=== PATIENT | male | born 1990 | race African-American/Black ===

== ENCOUNTER 2025-02-07 15:19 | Inpatient (IN) | payer OTHER ==
[~2025-02-07] VITALS: Ht 182.9 cm; Wt 109.0 kg
--- NOTE | 2025-02-07 16:10 | ED.PDOC ---
GI ASSESSMENT HPI Comments 34 year old male presented with abdominal pain and body aches, seeking testing and symptomatic relief. The patient reported experiencing abdominal pain so severe that it interfered with daily activities, including smoking. The patient also mentioned vomiting frequently, body aches, and sniffles, suspecting a COVID-19 infection due to similar past experiences. The patient had not used [id number] COVID or flu tests. The only medication taken was an [id number] cold and flu remedy the night before the visit. The patient had a history of epilepsy in childhood but no current medications. The patient reported smoking tobacco and marijuana regularly, with alcohol consumption four days prior. The patient reported not having any allergies or past surgeries. Chief Complaint: Flu like Time Seen by MD: 16:00 Reviewed Notes: Medications, Allergies Allergies: Coded Allergies: NO KNOWN ALLERGIES (Unverified , 02/07/25) Information Source: Patient Mode of Arrival: Ambulatory Timing: Days Duration: Since onset Prehospital treatment: None Quality: Sharp Severity: Moderate Recent: None Recent Hx of: None Pain Location: Diffuse Modifying Factors: Nothing Associated sign and symptoms: Nausea, Vomiting Past Medical History PAST MEDICAL HISTORY: Denies Surgical History: Denies all surgeries Family History Family History: Reviewed,noncontributory to illness, No family hx of Cancer, No family hx of DM, No family hx of Heart kulwant, No family hx of HTN, No family hx ofKidney kulwant, No family hx of Liver kulwant, No family hx of Lung kulwant, No family hx of Stroke Social History Smoker: Non-Smoker Alcohol: Denies ETOH Use Drugs: Denies Drug Use Lives In: Home All Other Systems: Reviewed and Negative (as per HPI) Physical Exam General Appearance: No Apparent Distress, Normal HEENT: Normal ENT Inspection, Pharynx Normal, TMs Normal Neck: Full Range of Motion, Non-Tender, Normal, Normal Inspection Respiratory: Chest Non-Tender, Lungs Clear, No Accessory Muscle Use, No Res piratory Distress, Normal Breath Sounds Cardiovascular: No Edema, No JVD, No Murmur, No Gallop, Normal Peripheral Pulses, Regular Rate/Rhythm Breast Exam: Deferred Gastrointestinal: No Organomegaly, No Pulsatile Mass, Normal Bowel Sounds, Tenderness (tenderness to abdomen on palpation) Genitalia: Deferred Pelvic: Deferred Rectal: Deferred Extremities: No calf tenderness, Normal capillary refill, Normal inspection, Normal range of motion, Non-tender, No pedal edema Musculoskeletal : Apperance: Normal Neurologic: Alert, icu staff nurse II-XII nml as Tested, No Motor Deficits, Normal Affect, Normal Mood, No Sensory Deficits Cerebellar Function: Normal Reflexes: Normal Skin: Dry, Normal Color, Warm Lymphatic: No Adenopathy Was a procedure done? Was a procedure done?: No X-Ray, Labs, Meds, VS Vital Signs Date Time Temp Pulse Resp B/P (MAP) Pulse Ox O2 Delivery O2 Flow Rate FiO2 02/07/25 15:22 98.3 91 20 144/92 98 98.3 Lab Test 02/07/25 16:58 02/07/25 16:10 Range/Units White Blood Count 7.6 4.4-10.8 10^3/uL Red Blood Count 4.79 4.5-5.90 10^6/uL Hemoglobin 13.8 13.5-17.5 g/dL Hematocrit 42.2 41.0-53.0 % Mean Corpuscular Volume 88.0 80.0-100.0 fL Mean Corpuscular Hemoglobin 28.8 28.0-32.0 pg Mean Corpuscular Hemoglobin Concent 32.7 32.0-36.0 g/dL Red Cell Distribution Width 13.4 11.8-14.3 % Platelet Count 243 140-450 10^3/uL Mean Platelet Volume 8.5 6.9-10.8 fL Neutrophils (%) (Auto) 66.1 37.0-80.0 % Lymphocytes (%) (Auto) 25.1 10.0-50.0 % Monocytes (%) (Auto) 5.6 0.0-12.0 % Eosinophils (%) (Auto) 2.3 0.0-7.0 % Basophils (%) (Auto) 0.9 0.0-2.0 % Neutrophils # (Auto) 5.0 1.6-8.6 10 ^3/uL Lymphocytes # (Auto) 1.9 0.4-5.4 10 ^3/uL Monocytes # (Auto) 0.4 0-1.3 10 ^3/uL Eosinophils # (Auto) 0.2 0-0.8 10 ^3/uL Basophils # (Auto) 0.1 0-0.2 10 ^3/uL Nucleated Red Blood Cells 0.1 % Sodium Level Pending Potassium Level Pending Chloride Level Pending Carbon Dioxide Level Pending Anion Gap Pending Blood Urea Nitrogen Pending Creatinine Pending Glomerular Filtration Rate Calc Pending BUN/Creatinine Ratio Pending Serum Glucose Pending Calcium Level Pending Lipase Pending HIV (1&2) Antibody Pending Urine Color Light-yellow Yellow Urine Clarity Clear Clear Urine pH 6.0 5.0-9.0 Urine Specific [place] 1.020 1.001-1.035 Urine Protein Negative Negative Urine Ketones Negative Negative Urine Blood Negative Negative /uL Urine Nitrite Negative Negative Urine Bilirubin Negative Negative Urine Urobilinogen Normal Negative mg/dL Urine Leukocyte Esterase Negative Negative /uL Urine RBC 1 0 - 3 /hpf Urine Microscopic WBC < 1 0-3 /HPF Urine Squamous Epithelial Cells None seen <5 /hpf Urine Bacteria None seen None Seen /hpf Urine Glucose Normal Normal mg/dL Chlamydia trachomatis (MICHAEL) Pending Neisseria gonorrhoeae (MICHAEL) Pending Current Medications Medications (Trade) Dose Ordered Sig/Armida Route Start Time Stop Time Status Last Admin Ondansetron HCl (Zofran Po) 4 mg ONCE ONCE PO 02/07/25 16:15 02/07/25 16:16 DC 02/07/25 16:46 Hyoscyamine (Hyoscyamine ORAL DISSOLVING TAB) 0.125 mg ONCE ONCE PO 02/07/25 16:15 02/07/25 16:16 DC 02/07/25 16:46 X-Ray, Labs, Meds, VS Comment 34 year old male presented with abdominal pain and body aches, seeking testing and symptomatic relief. Patient arrives alert and oriented, ABC's intact, afebrile, vital signs stable, saturating well in room air labs were ordered. CBC was ordered to exclude anemia, blood loss, or infection. BMP was ordered to exclude electrolyte abnormalities, renal failure, dehydration, hyperglycemia CMP was ordered to exclude electrolyte abnormalities, renal failure, dehydration, hyperglycemia and/or liver enzyme abnormalities. PT and INR were ordered to rule out coagulopathy. Troponin and BNP were ordered to rule out myocardial infarction, or congestive heart failure. Urinalysis was ordered to rule out UTI or hematuria. Diagnostic imaging ordered by me and results interpreted by radiology : Labs in the ED showed (pertinent+ and then pertinent-) Patient was given:_. Tolerated medications with no adverse reaction. Additional MDM Review of External, Non-ED records: External records reviewed. Discussion with independent historian (EMS, family) history obtained from the patient/parents (if applicable) at bedside Chronic conditions affecting care: None Social determinants of health affecting care: None Consideration of admission (observation or admission): I considered escalation of care to admission for this patient, however given the reassuring workup, the patient is safe for outpatient management. PLAN: Treatment: - Medications: Administered Zofran for nausea. Tests: - Imaging: Planned abdominal scan to assess for any organ issues. - Labs: Ordered blood work to check for infections. - Viral Testing: Planned COVID-19 and influenza testing. Patient Education: - Discussed the nature of viral infections and symptomatic treatment options. - Advised on the importance of following up with results and adhering to prescribed medications. Follow-Up: - Planned to discharge the patient with medication once tests were completed and results evaluated. Disposition: - The patient was to remain in the clinic until tests and necessary treatments were administered. On reevaluation, patient had symptomatic improvement. Patient is stable for discharge at this time. External notes reviewed. Test results and diagnostic imaging interpreted. All diagnostic findings, discharge care, education and instructions provided Follow-up with PCP in 2 to 3 days Patient verbalized understanding and agreed to treatment plan Vital signs stable, afebrile, no acute distress noted Patient ambulatory with strong steady gait Advised to return precautions for any new or worsening symptoms, return to ER immediately for re-evaluation Patient is aware that the purpose of this visit was for an acute medical emergency requiring emergent stabilization. Chronic conditions, including malignancies have not been ruled out. Patient is instructed to follow up with PCP as directed and discharge instructions for continued care and workup. If unable to arrange follow-up, patient is to return to the emergency department for reassessment. Patient (parent or legal guardian if applicable) was given verbal and written discharge instructions and acknowledges understanding. Time of 1ST Reevaluation: 16:30 Reevaluation 1ST: Improved Patient Education/Counseling: Diagnosis, Treatment Family Education/Counseling: No Family Present SEPSIS Sepsis Screen Date sepsis recognized/suspect: Feb 07, 2025 Time Sepsis recognized/suspect: 1521 Recent Procedure: No On Antibiotic Therapy: No Respiratory Rate >20: No Heart Rate >90: No Temp<36 C (96.8 F) or >38.3 C: No SBP <90 or MAP <65 mmHG: No New Acute Mental Status Change: No Is the patient on CPAP, BIPAP,: No Physician Orders Basic Metabolic Panel (02/07/25 16:08) Ct Ab Pel Wo Con-No Oral Or Iv (02/07/25 16:08) Hiv 1&2 Antibody (02/07/25 16:08) Chlamydia/Gc Amplification (02/07/25 16:08) Lipase (02/07/25 16:08) Vital Signs Date Time Temp Pulse Resp B/P (MAP) Pulse Ox O2 Delivery O2 Flow Rate FiO2 02/07/25 15:22 98.3 91 20 144/92 98 98.3 Laboratory Tests Test 02/07/25 16:58 White Blood Count 7.6 10^3/uL (4.4-10.8) Medications Medications Dose Ordered Sig/Armida Route Start Time Stop Time Status Last Admin Dose Admin Hyoscyamine 0.125 mg ONCE ONCE PO 02/07/25 16:15 02/07/25 16:16 DC 02/07/25 16:46 Ondansetron HCl 4 mg ONCE ONCE PO 02/07/25 16:15 02/07/25 16:16 DC 02/07/25 16:46 Departure 1 Departure Impression: Primary Impression: Adrenal nodule Additional Impressions: Colitis Gastritis Nausea & vomiting Abdominal pain Critical Care Note Critical Care Time?: No Stability Stability form required: No Heart Score Heart Score: Heart Score Response (Comments) Value History N/A 0 EKG N/A 0 Age N/A 0 Risk Factors N/A 0 Troponin N/A 0 Total 0 I personally scribed for HARRY AG NP ([email or web address]) on 02/07/25 at 16:10. Electronically submitted by Lindsay Paredes ([email or web address]). I personally scribed for HARRY AG NP ([email or web address]) on 02/07/25 at 16:11. Electronically submitted by Lindsay Paredes ([email or web address]). HARRY AG RIDING COACH Feb 07, 2025 16:10
[2025-02-07] MEDS: ONDANSETRON ODT 4 MG TAB PO ONE (16:46)
[2025-02-07] MEDS: HYOSCYAMINE SULF 0.125 MG ODT TAB PO ONE (16:46)
--- NOTE | 2025-02-07 17:07 | DVH ---
EXAM: CT CT AB PEL WO CON-NO ORAL OR IV History: ab pain Comparison Study: None TECHNIQUE: Multidetector CT of the abdomen pelvis without IV contrast. Axial, coronal and sagittal multiplanar reformats were obtained from the axial data set by the technologist. Radiation Dose Information: CT Dose: CTDI volume is 16.05 mGy. Dose-length product is 877.61 mGy*cm FINDINGS: Bibasilar atelectasis. Partially visualized heart is unremarkable. Mild hepatomegaly. Otherwise, liver, spleen, gallbladder, pancreas and left adrenal glands unremarkable. Indeterminate 1.7 cm right adrenal nodule measuring up to 44 Hounsfield units and abutting the upper pole of the right kidney. Kidneys, ureters and urinary bladder unremarkable. Prostate is unremarkable. Mild gastric wall thickening. Small bowel loops are unremarkable. Appendix is unremarkable. Mild wall thickening of the ascending colon, transverse colon and descending colon. Small to moderate amount of fecal material within the colon. No evidence of intraperitoneal free air or free fluid. No evidence of aortic aneurysm. No significant lymphadenopathy. The soft tissues are unremarkable. No evidence of acute osseous abnormalities. IMPRESSION: Mild gastritis. Mild colitis involving the ascending colon, transverse colon and descending colon. 1.7 cm indeterminate right adrenal nodule. Adrenal protocol CT / MRI is recommended for further evaluation.
[2025-02-07 17:20] LABS: Urine Protein, UAD Negative (Negative)
[2025-02-07 17:22] LABS: Hematocrit 42.2 % (41.0-53.0); Hemoglobin 13.8 g/dL (13.5-17.5); Mean Corpuscular Hemoglobin 28.8 pg (28.0-32.0); Mean Corpuscular Volume 88.0 fL (80.0-100.0); Nucleated Red Blood Cells % 0.1 %
[2025-02-07 17:28] LABS: Chloride 102 mmol/L (98-107); Potassium 3.9 mmol/L (3.5-5.1); Sodium 138 mmol/L (136-145)
[2025-02-07 17:29] LABS: Anion Gap 8 (5-15); Calcium 9.3 mg/dL (8.7-10.4); Carbon Dioxide 28 mmol/L (20-31)
[2025-02-07 17:34] LABS: BUN/Creatinine Ratio 8.5 (10.0-20.0); Glucose 88 mg/dL (74-106); Lipase 35 U/L (12-53)
[2025-02-07 17:39] LABS: Blood Urea Nitrogen 8 mg/dL (9-23)
[2025-02-07] MEDS: MORPHINE SULFATE 4 MG/ML SYR/VIAL IV ONE (18:20)
[2025-02-07] MEDS: SODIUM CHLORIDE 0.9% 500 ML IV ONE (18:20)
[2025-02-07] MEDS: ONDANSETRON HCL 4 MG/2 ML VIAL IV ONE (18:20)
[2025-02-07] MEDS ORDERED: ONDANSETRON HCL 4 MG/2 ML VIAL IV PRN (22:00)
--- NOTE | 2025-02-07 22:03 | DVHHPRES ---
History of Present Illness Resident Creating Document: JOSUÉ RODRIGUEZ RESIDENT History of Present Illness This is a 34-year-old male with 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 Patient current symptoms associated with nausea and vomiting same duration which contain food materials but no blood mixed with vomitus. Patient also having loose stool for last 3 days, 1 to 2 episode per day but stool not mixed with any blood Patient denies any recent sick contact, travel outside or taking street food recently. Currently denies any fever, SOB, headache, cough, dysuria or any other focal weakness. Past medical history: Childhood epilepsy not on any medication Past surgical history: Nothing contributory Family history: Nothing contributory Personal history: Smokes vape, use marijuana daily and last use yesterday, occasional ETOH, denies any illicit drug use Allergy: No known allergy PCP: Dr. Dubon Otter medication: None Review of Systems Constitutional: Yes: Weakness, Malaise, Other (Tattoo ernie different parts of the body); No: Fever, Chills, Sweats Eyes: No: Pain, Vision change, Conjunctivae inflammation, Eyelid inflammation, Other, Redness ENT: No: Ear pain, Ear discharge, Nose pain, Nose discharge, Nose congestion, Mouth pain, Mouth swelling, Throat pain, Throat swelling, Other Respiratory: No: Cough, Dry, Shortness of breath, SOB with excertion, Wheezing, Hemoptysis, Pleuritic Pain, Sputum, Wheezing, Other Cardiovascular: No: Chest Pain, Palpitations, Orthopnea, Paroxysmal Noc. Dyspnea, Edema, Lt Headedness, Other Gastrointestinal: Nausea, Vomiting, Abdominal Pain; No: Diarrhea, Constipation, Melena, Hematochezia, Other Genitourinary: No Dysuria, No Frequency, No Incontinence, No Hematuria, No Retention, No Other Musculoskeletal: No: other, neck pain, shoulder pain, arm pain, back pain, hand pain, leg pain, foot pain Skin: No: Rash, Lesions, Jaundice, Bruising, Other Neurological: No: Weakness, Numbness, Incoordination, Change in speech, Confusion, Seizures, Other Allergies: Coded Allergies: NO KNOWN ALLERGIES (Unverified , 02/07/25) Exam Vital Signs Vital Signs Date Time Temp Pulse Resp B/P (MAP) Pulse Ox O2 Delivery O2 Flow Rate FiO2 02/07/25 20:54 98.4 73 20 130/84 (99) 99 98.4 General Appearance: Alert, Oriented X3, Cooperative, moderate distress HEENT: Atraumatic, PERRLA, EOMI Respiratory: Clear to auscultation, Normal air movement Cardiovascular: Regular rate, Normal S1, Normal S2, No murmurs Abdominal: Normal bowel sounds, Soft, Other (Abdomen tender on deep palpation) Extremities: No clubbing, No cyanosis, No edema, Normal pulses Skin: No rashes, No breakdown, No significant lesion Neuro: Normal gait, Normal speech, Strength at 5/5 X4 ext, Sensation intact, Cranial nerves 3-12 NL Psych/Mental Status: Mental status NL, Mood NL Labs/Xrays Labs Test 02/07/25 16:58 02/07/25 16:10 Range/Units White Blood Count 7.6 4.4-10.8 10^3/uL Red Blood Count 4.79 4.5-5.90 10^6/uL Hemoglobin 13.8 13.5-17.5 g/dL Hematocrit 42.2 41.0-53.0 % Mean Corpuscular Volume 88.0 80.0-100.0 fL Mean Corpuscular Hemoglobin 28.8 28.0-32.0 pg Mean Corpuscular Hemoglobin Concent 32.7 32.0-36.0 g/dL Red Cell Distribution Width 13.4 11.8-14.3 % Platelet Count 243 140-450 10^3/uL Mean Platelet Volume 8.5 6.9-10.8 fL Neutrophils (%) (Auto) 66.1 37.0-80.0 % Lymphocytes (%) (Auto) 25.1 10.0-50.0 % Monocytes (%) (Auto) 5.6 0.0-12.0 % Eosinophils (%) (Auto) 2.3 0.0-7.0 % Basophils (%) (Auto) 0.9 0.0-2.0 % Neutrophils # (Auto) 5.0 1.6-8.6 10 ^3/uL Lymphocytes # (Auto) 1.9 0.4-5.4 10 ^3/uL Monocytes # (Auto) 0.4 0-1.3 10 ^3/uL Eosinophils # (Auto) 0.2 0-0.8 10 ^3/uL Basophils # (Auto) 0.1 0-0.2 10 ^3/uL Nucleated Red Blood Cells 0.1 % Sodium Level 138 136-145 mmol/L Potassium Level 3.9 3.5-5.1 mmol/L Chloride Level 102 98-107 mmol/L Carbon Dioxide Level 28 20-31 mmol/L Anion Gap 8 5-15 Blood Urea Nitrogen 8 L 9-23 mg/dL Creatinine 0.94 0.700-1.30 mg/dL Glomerular Filtration Rate Calc 108 >90 mL/min BUN/Creatinine Ratio 8.5 L 10.0-20.0 Serum Glucose 88 74-106 mg/dL Calcium Level 9.3 8.7-10.4 mg/dL Lipase 35 12-53 U/L HIV (1&2) Antibody Negative Negative Urine Color Light-yellow Yellow Urine Clarity Clear Clear Urine pH 6.0 5.0-9.0 Urine Specific [place] 1.020 1.001-1.035 Urine Protein Negative Negative Urine Ketones Negative Negative Urine Blood Negative Negative /uL Urine Nitrite Negative Negative Urine Bilirubin Negative Negative Urine Urobilinogen Normal Negative mg/dL Urine Leukocyte Esterase Negative Negative /uL Urine RBC 1 0 - 3 /hpf Urine Microscopic WBC < 1 0-3 /HPF Urine Squamous Epithelial Cells None seen <5 /hpf Urine Bacteria None seen None Seen /hpf Urine Glucose Normal Normal mg/dL SEPSIS Sepsis Screen Date sepsis recognized/suspect: Feb 07, 2025 Time Sepsis recognized/suspect: 1522 Recent Procedure: No On Antibiotic Therapy: No Respiratory Rate >20: No Heart Rate >90: No Temp<36 C (96.8 F) or >38.3 C: No SBP <90 or MAP <65 mmHG: No New Acute Mental Status Change: No Is the patient on CPAP, BIPAP,: No Physician Orders Ct Ab Pel Wo Con-No Oral Or Iv (02/07/25 16:08) Chlamydia/Gc Amplification (02/07/25 16:08) Heplock Iv (02/07/25 17:35) Admit (02/07/25 21:56) Code Status (02/07/25 21:56) 0.9% Ns 1000 Ml (02/07/25 22:00) Enoxaparin Sodium (Lovenox) (02/08/25 10:00) Npo (Nothing By Mouth) Diet (02/08/25 Breakfast) Stat Ekg For Chest Pain (02/07/25 21:56) Notify Of Changes From Base (02/07/25 21:56) Ondansetron Hcl (Zofran) (02/07/25 22:00) Hydromorphone Injection (Dilaudid Inject (02/07/25 22:00) Drug Screen (02/07/25 21:56) Metronidazole Ivpb Flagyl (02/07/25 22:00) Metronidazole Ivpb Flagyl (02/07/25 22:00) Ceftriaxone Ivpb Rocephin (02/07/25 22:00) Ceftriaxone Ivpb Rocephin (02/07/25 22:00) Vital Signs Date Time Temp Pulse Resp B/P (MAP) Pulse Ox O2 Delivery O2 Flow Rate FiO2 02/07/25 20:54 98.4 73 20 130/84 (99) 99 98.4 02/07/25 18:39 77 16 135/89 (104) 99 02/07/25 18:20 77 16 135/89 02/07/25 15:22 98.3 91 20 144/92 98 98.3 Laboratory Tests Test 02/07/25 16:58 White Blood Count 7.6 10^3/uL (4.4-10.8) Medications Medications Dose Ordered Sig/Armida Route Start Time Stop Time Status Last Admin Dose Admin Hyoscyamine 0.125 mg ONCE ONCE PO 02/07/25 16:15 02/07/25 16:16 DC 02/07/25 16:46 0.125 MG Morphine Sulfate 4 mg ONCE ONCE IV 02/07/25 17:45 02/07/25 17:46 DC 02/07/25 18:20 4 MG Ondansetron HCl 4 mg ONCE ONCE PO 02/07/25 16:15 02/07/25 16:16 DC 02/07/25 16:46 4 MG Ondansetron HCl 4 mg PRN ONCE IV 02/07/25 17:45 02/07/25 17:46 DC 02/07/25 18:20 4 MG Sodium Chloride 500 ml @ 1,000 mls/hr Q30M ONCE IV 02/07/25 17:45 02/07/25 18:43 DC 02/07/25 18:20 1,000 MLS/HR Assessment/Plan Assessment/Plan Intractable abdominal pain due to colitis Acute gastroenteritis Gram-positive or Gram-negative bacteria Cannabis induced hyperemesis Patient came with GI symptoms Took injr-qjw-wanicnq flu medicine In ER patient received morphine, ondansetron, NSS, hyoscyamine. Lipase: 35 CT abdomen pelvis without contrast:Mild gastritis. Mild colitis involving the ascending colon, transverse colon and descending colon. IVF Antiemetic Pain management Empiric antibiotic ceftriaxone and metronidazole, deescalate accordingly GC chlamydia-pending HIV: Negative Monitor labs and vital Substance abuse/marijuana use daily UDS positive for fentanyl, cocaine, cannabis.. Counseling done>13 minutes spent. Incidentaloma right adrenal gland CT abdomen shows: 1.7 cm indeterminate right adrenal nodule. Outpatient follow-up History of epilepsy in childhood Not on any medication Outpatient neurology Obesity, BMI 32.6 Lifestyle modification Diet: NPO, advanced accordingly GI prophylaxis: Pantoprazole DVT prophylaxis: Lovenox Goals of care discussion. More than 23 minute spent with patient. Full code status. Case discussed with Dr. Almanzar Plan discussed with: Patient, Other (Nurse) My Orders Orders - JOSUÉ RODRIGUEZ RESIDENT Procedure Category Date Status Time Admit ADMIT 02/07/25 Verified 21:56 Code Status CODE 02/07/25 Verified 21:56 0.9% Ns 1000 Ml PHA 02/07/25 Verified 22:00 Enoxaparin Sodium PHA 02/08/25 Verified (Lovenox) 10:00 Npo (Nothing By DIET 02/08/25 Verified Mouth) Diet Breakfast Stat Ekg For Chest [facility] 02/07/25 Verified Pain 21:56 Notify Md Of Changes MARGE 02/07/25 Verified From Base 21:56 Ondansetron Hcl PHA 02/07/25 Verified (Zofran) 22:00 Hydromorphone PHA 02/07/25 Verified Injection (Dilaudid 22:00 Drug Screen LAB 02/07/25 Verified 21:56 Metronidazole Ivpb PHA 02/07/25 Verified Flagyl 22:00 Metronidazole Ivpb PHA 02/07/25 Verified Flagyl 22:00 Ceftriaxone Ivpb PHA 02/07/25 Verified Rocephin 22:00 Ceftriaxone Ivpb PHA 02/07/25 Verified Rocephin 22:00 Visit Coding STANDARD RES Billing Provider: ALECIA ALMANZAR MD Date of Service if different f: Feb 07, 2025 Common Visit Codes: 04655-[id number] INP/OBS CARE (HIGH) Secondary Visit Codes: 29056-[id number] CARE PLAN 30 MINUTES JOSUÉ RODRIGUEZ RESIDENT Feb 07, 2025 22:02
[2025-02-07 22:35] LABS: Cannabinoid Screen, Urine Pos (NEGATIVE); Cocaine Screen, Urine Pos (NEGATIVE)
[2025-02-07 22:58] LABS: Amphetamine Screen, Urine Neg (NEGATIVE); Barbiturate Scree,Urine Neg (NEGATIVE); Benzodiazephine Screen, Urine Neg (NEGATIVE); Opiate Scree,Urine Neg (NEGATIVE); Phencyclidine Screen, Urine Neg (NEGATIVE)
[2025-02-08] VITALS (7 sets, daily range): BP systolic 104–129; BP diastolic 42–74; PULSE 63–72; RESP 16–20; TEMP 97.4–98.3; O2SAT 96–99
[2025-02-08] MEDS: HYDROmorphone HCL 2 MG/ML VL/or syr IV PRN (02:08)
[2025-02-08] MEDS: SODIUM CHLORIDE 0.9% 1,000 ML IV SCH (02:15)
[2025-02-08 06:14] LABS: Hematocrit 38.4 % (41.0-53.0); Hemoglobin 13.1 g/dL (13.5-17.5); Mean Corpuscular Hemoglobin 29.6 pg (28.0-32.0); Mean Corpuscular Volume 86.5 fL (80.0-100.0); Nucleated Red Blood Cells % 0.1 %
[2025-02-08 06:31] LABS: Alanine Aminotransferase 24 U/L (7-40); Albumin 3.6 g/dL (3.2-4.8); Alkaline Phosphatase 53 U/L (46-116); Anion Gap 8 (5-15); Carbon Dioxide 28 mmol/L (20-31); Chloride 104 mmol/L (98-107); Potassium 3.7 mmol/L (3.5-5.1); Sodium 140 mmol/L (136-145)
[2025-02-08 06:37] LABS: Calcium 8.6 mg/dL (8.7-10.4); Glucose 111 mg/dL (74-106)
[2025-02-08 06:40] LABS: BUN/Creatinine Ratio 11.0 (10.0-20.0); Blood Urea Nitrogen 10 mg/dL (9-23)
[2025-02-08 06:41] LABS: Total Protein 6.5 g/dL (5.7-8.2)
[2025-02-08 06:42] LABS: Bilirubin, Total 0.4 mg/dL (0.2-1.0)
[2025-02-08] MEDS: ENOXAPARIN SOD 40 MG/0.4 ML SYRINGE SC SCH (10:07)
[2025-02-08] MEDS: SUCRALFATE 1 GM/10 ML ORAL SUSP GT ONE (12:23)
[2025-02-08] MEDS ORDERED: SUCR1SUS26 PO (17:08)
[2025-02-08] MEDS ORDERED: PANT40TA2 PO (17:08)
--- NOTE | 2025-02-08 17:51 | DVHDSRES ---
Discharge Summary Date of Admission Resident Creating Document: JOSUÉ RODRIGUEZ RESIDENT Feb 07, 2025 at 21:56 Date of Discharge: Feb 08, 2025 Admitting Diagnosis Intractable abdominal pain due to colitis Labs/Diagnostic Data: Laboratory Results Test 02/08/25 05:23 02/07/25 16:58 02/07/25 16:10 White Blood Count 6.2 10^3/uL (4.4-10.8) Red Blood Count 4.44 10^6/uL (4.5-5.90) Hemoglobin 13.1 g/dL (13.5-17.5) Hematocrit 38.4 % (41.0-53.0) Mean Corpuscular Volume 86.5 fL (80.0-100.0) Mean Corpuscular Hemoglobin 29.6 pg (28.0-32.0) Mean Corpuscular Hemoglobin Concent 34.3 g/dL (32.0-36.0) Red Cell Distribution Width 12.9 % (11.8-14.3) Platelet Count 245 10^3/uL (140-450) Mean Platelet Volume 8.3 fL (6.9-10.8) Neutrophils (%) (Auto) 57.1 % (37.0-80.0) Lymphocytes (%) (Auto) 30.9 % (10.0-50.0) Monocytes (%) (Auto) 7.4 % (0.0-12.0) Eosinophils (%) (Auto) 3.9 % (0.0-7.0) Basophils (%) (Auto) 0.7 % (0.0-2.0) Neutrophils # (Auto) 3.6 10 ^3/uL (1.6-8.6) Lymphocytes # (Auto) 1.9 10 ^3/uL (0.4-5.4) Monocytes # (Auto) 0.5 10 ^3/uL (0-1.3) Eosinophils # (Auto) 0.2 10 ^3/uL (0-0.8) Basophils # (Auto) 0 10 ^3/uL (0-0.2) Nucleated Red Blood Cells 0.1 % Sodium Level 140 mmol/L (136-145) Potassium Level 3.7 mmol/L (3.5-5.1) Chloride Level 104 mmol/L (98-107) Carbon Dioxide Level 28 mmol/L (20-31) Anion Gap 8 (5-15) Blood Urea Nitrogen 10 mg/dL (9-23) Creatinine 0.91 mg/dL (0.700-1.30) Glomerular Filtration Rate Calc 112 mL/min (>90) BUN/Creatinine Ratio 11.0 (10.0-20.0) Serum Glucose 111 mg/dL (74-106) Hemoglobin A1c 4.8 % A1C (<5.7) Calcium Level 8.6 mg/dL (8.7-10.4) Total Bilirubin 0.4 mg/dL (0.2-1.0) Aspartate Amino Transferase (AST) 20 U/L (13-40) Alanine Aminotransferase (ALT) 24 U/L (7-40) Alkaline Phosphatase 53 U/L (46-116) Total Protein 6.5 g/dL (5.7-8.2) Albumin 3.6 g/dL (3.2-4.8) Vitamin B12 Level 758 pg/mL (211-911) Vitamin D 25-Hydroxy 24.2 ng/mL (30.0-100) Thyroid Stimulating Hormone (TSH) 1.31 uIU/mL (0.55-4.78) Lipase 35 U/L (12-53) HIV (1&2) Antibody Negative (Negative) Urine Color Light-yellow (Yellow) Urine Clarity Clear (Clear) Urine pH 6.0 (5.0-9.0) Urine Specific [place] 1.020 (1.001-1.035) Urine Protein Negative (Negative) Urine Ketones Negative (Negative) Urine Blood Negative /uL (Negative) Urine Nitrite Negative (Negative) Urine Bilirubin Negative (Negative) Urine Urobilinogen Normal mg/dL (Negative) Urine Leukocyte Esterase Negative /uL (Negative) Urine RBC 1 /hpf (0 - 3) Urine Microscopic WBC < 1 /HPF (0-3) Urine Squamous Epithelial Cells None seen /hpf (<5) Urine Bacteria None seen /hpf (None Seen) Urine Glucose Normal mg/dL (Normal) Urine Opiates Screen Neg (NEGATIVE) Urine Fentanyl Screen Pos (NEGATIVE) Urine Barbiturates Screen Neg (NEGATIVE) Urine Phencyclidine Screen Neg (NEGATIVE) Urine Amphetamines Screen Neg (NEGATIVE) Urine Benzodiazepines Screen Neg (NEGATIVE) Urine Cocaine Screen Pos (NEGATIVE) Urine Cannabinoids Screen Pos (NEGATIVE) Other Laboratory Tests 02/08/25 05:23 Brief Hx & Hospital Course: This is a 34-year-old male with 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 Patient current symptoms associated with nausea and vomiting same duration which contain food materials but no blood mixed with vomitus. Patient also having loose stool for last 3 days, 1 to 2 episode per day but stool not mixed with any blood Patient denies any recent sick contact, travel outside or taking street food recently. Currently denies any fever, SOB, headache, cough, dysuria or any other focal weakness. Past medical history: Childhood epilepsy not on any medication Past surgical history: Nothing contributory Family history: Nothing contributory Personal history: Smokes vape, use marijuana daily and last use yesterday, occasional ETOH, denies any illicit drug use Allergy: No known allergy PCP: Dr. Dubon Home medication: None brief hospital course: patient came to the ER with chief complaints of abdominal pain and nausea, vomiting. Acute gastritis possibly Gram-positive or Gram-negative bacteria. Or cannabis induced hyperemesis syndrome. Patient had lipase of 35, CT abdomen showed:Mild gastritis. Mild colitis involving the ascending colon, transverse colon and descending colon. patient got pain management, antiemetics, IV ceftriaxone, metronidazole. Patient is negative for HIV. Monitor labs and vitals. Patient has multiple substance use disorder, UDS was positive for fentanyl cocaine and cannabis. Patient had a incidental [place] right adrenal gland with CT abdomen showed 1.7 cm indeterminate right adrenal nodule. patient is obese with BMI of 32.6 patient counseled on lifestyle modification, diet, exercise for 18 minutes. Patient is stable for discharge and has understood his discharge plan. Patient is to follow-up with discharge Clinic in 1 week. General: Patient alert and oriented in person, place and time. Patient following commands. HEENT: Normocephalic, atraumatic, moist mucous membranes Respiratory/pulmonary: Clear lungs bilaterally, vesicular murmurs present in almost all lung reilly, no associated crackles or wheezes. Cardiovascular: Normal heart sounds S1 and S2 with no associated murmurs Abdomen: Abdomen nondistended, there is no pain to palpation in any of the abdominal quadrants, no palpable masses. Extremities: There is no peripheral edema present at the lower extremities. Peripheral Pulses: 3+ Radial (R). 3+ Radial (L). 3+ Dorsalis pedis (R). 3+ Dorsalis pedis(L) Skin: No rashes or pruritus, there is no sacral edema present at this time. Neurological: Intact cranial nerves with no focal neurologic deficits Patient is to take Pantoprazole 40 mg p.o. daily Sucralfate 10 mL p.o. b.i.d. Operations or Procedures ORDERING PHYSICIAN: HARRY AG NP PROCEDURE(s): ABPL - CT AB PEL WO CON-NO ORAL OR IV REASON: ab pain ORDER NUMBER(s): [id number], ACCESSION NUMBER(s): [id number] EXAM: CT CT AB PEL WO CON-NO ORAL OR IV History: ab pain Comparison Study: None TECHNIQUE: Multidetector CT of the abdomen pelvis without IV contrast. Axial, coronal and sagittal multiplanar reformats were obtained from the axial data set by the technologist. Radiation Dose Information: CT Dose: CTDI volume is 16.05 mGy. Dose-length product is 877.61 mGy*cm FINDINGS: Bibasilar atelectasis. Partially visualized heart is unremarkable. Mild hepatomegaly. Otherwise, liver, spleen, gallbladder, pancreas and left adrenal glands unremarkable. Indeterminate 1.7 cm right adrenal nodule measuring up to 44 Hounsfield units and abutting the upper pole of the right kidney. Kidneys, ureters and urinary bladder unremarkable. Prostate is unremarkable. Mild gastric wall thickening. Small bowel loops are unremarkable. Appendix is unremarkable. Mild wall thickening of the ascending colon, transverse colon and descending colon. Small to moderate amount of fecal material within the colon. No evidence of intraperitoneal free air or free fluid. No evidence of aortic aneurysm. No significant lymphadenopathy. The soft tissues are unremarkable. No evidence of acute osseous abnormalities. IMPRESSION: Mild gastritis. Mild colitis involving the ascending colon, transverse colon and descending colon. 1.7 cm indeterminate right adrenal nodule. Adrenal protocol CT / MRI is recommended for further evaluation. ATED BY: EUNICE BRADFORD DO DICTATED DATE/TIME: 02/07/25 1705 SIGNED BY: ONYI, EUNICE C DO SIGNED DATE/TIME: 02/07/25 1706 CC: Condition at Discharge: Stable Final Diagnosis/Problems List Acute Intractable Pain, Gastritis, Acute Colitis likely infectious d/t polysubstance use Incidentaloma right adrenal gland History of epilepsy in childhood Obesity, BMI 32.6 Discharge Disposition: Home Discharge Instruct/Medications Diet: See Comment Diet comment: continune on full liquid diet for 3-5 days and then advcance as tolerated Drink fluids and high fibre diet to avoid constipation Activity: No Restrictions, As Tolerated Follow Up/Referral: F/up with the PCP in one week Medications: as per EMR Scheduled Pantoprazole Sodium Sesquihydr (Protonix), 40 MG PO daily@6am Sucralfate (Carafate Susp), 10 ML PO BID Discharge Statement: "Patient was advised to return to the ER or call 911 if any headaches, dizziness, shortness of breath, chest pain, abdominal pain, bleeding, fevers, or worsening of medical condition. Patient was counseled about treatment plan, medications, possible side effects, patientverbalized understanding. All questions were answered to the best of my ability. This discharge took greater then 30 minutes in planning, reviewing documentation, counseling the patient, and discussing with other team members." ASSESSMENT ASSESSMENT Assessment Acute Intractable Pain, Gastritis, Acute Colitis likely infectious d/t polysubstance use Visit Coding STANDARD RES Billing Provider: DERIK HWANG MD Date of Service if different f: Feb 08, 2025 Common Visit Codes: [id number] INP/OBS CARE(HIGH) ANTONINO OLIVARES RESIDENT Feb 08, 2025 17:51
[2025-02-08] MEDS ORDERED: SUCRALFATE 1 GM/10 ML ORAL SUSP GT SCH (22:00)
[2025-02-09 06:07] LABS: Chlamydia Trachomatis, NAA Negative (Negative); Neisseria gonorrhoeae, NAA Negative (Negative)
== END 2025-02-08 18:25 | disposition home or self-care (01) | DRG 241 ==
LOC: ER 15:19 → OVERFLOW 21:56
PROVIDERS: ADMIT Student in an Organized Health Care Education/Training Program; ATTEND Nurse Practitioner Family
DX: K29.70 Gastritis, unspecified, without bleeding (principal); E27.8 Other specified disorders of adrenal gland; F19.10 Other psychoactive substance abuse, uncomplicated; E66.9 Obesity, unspecified; G40.909 Epilepsy, unspecified, not intractable, without status epilepticus; Z68.32 Body mass index [BMI] 32.0-32.9, adult; A08.8 Other specified intestinal infections; Z83.3 Family history of diabetes mellitus; Z82.49 Family history of ischemic heart disease and other diseases of the circulatory system
CPT/HCPCS: 36415; 74176; 80048; 80053; 80307; 81001; 82306; 82607; 83036; 83690; 84443; 85025; 86703; 96361; 96374; 96375; G0378; J2405; J3490; Q0162